=== PATIENT | male | born 1975 | race American Indian/Alaskan Native ===

== ENCOUNTER 2021-07-08 12:11 | Inpatient (IN) | payer SELFPAY ==
[2021-07-08] MEDS: SODIUM CHLORIDE 0.9% 1000 ML 2,000 ML IV ONE ×3 (13:00→14:24)
--- NOTE | 2021-07-08 13:25 | XRay Report ---
XR chest 1V ap INDICATION / CLINICAL INFORMATION: Chest Pain. COMPARISON: None available. FINDINGS: SUPPORT DEVICES: None. HEART /PULMONARY VASCULATURE: No significant abnormality. LUNGS / PLEURA: No significant pulmonary or pleural abnormality. No pneumothorax. ADDITIONAL FINDINGS: No significant additional findings. IMPRESSION: 1. No acute findings. Signer Name: Ha Mcnally MD Signed: 07/08/2021 1:20 PM Workstation Name: [id number]
[2021-07-08 13:34] LABS: Hematocrit 47.6 % (35.5-45.6); Hemoglobin 14.5 gm/dl (11.8-15.2); Mean Corpuscular HGB Conc 31 % (32-34); Mean Corpuscular Volume 108 fl (84-94); Platelet Count 252 K/mm3 (140-440); Red Blood Count 4.42 M/mm3 (3.65-5.03); Red Cell Distribution Width 12.6 % (13.2-15.2)
[2021-07-08 13:43] LABS: INR 1.17 (0.87-1.13)
[2021-07-08 14:06] LABS: Basophils % (Manual) 0 % (0.0-1.8); Eosinophils % (Manual) 0 % (0.0-4.3); Platelet Estimate Consistent w Auto; RBC Morphology Normal; Total Cells Counted 100
[2021-07-08 14:15] LABS: Alanine Aminotransferase 21 units/L (7-56); Albumin 4.2 g/dL (3.9-5); BUN/Creatinine Ratio 28; Blood Urea Nitrogen 94 mg/dL (9-20); Calcium 9.9 mg/dL (8.4-10.2); Hemolysis Index 3
[2021-07-08] MEDS ORDERED: INSULIN REGULAR, HUMAN 100 UNITS/1 ML IV ONE (15:23)
[2021-07-08 15:32] LABS: Basophils # (Auto) 0.2 K/mm3 (0.0-0.1); Monocytes # (Auto) 0.7 K/mm3 (0.0-0.8); Monocytes % (Auto) 4.7 % (0.0-7.3)
[2021-07-08 15:36] LABS: ABG Base Excess -28.7 mmol/L (-2.0-3.0); ABG HCO3 2.5 mmol/L (20.0-26.0); ABG Methemoglobin 0.8 % (0.0-1.5); ABG Oxygen Saturation 98.1 % (95.0-99.0); ABG PCO2 12.7 mm Hg; ABG PO2 157.4 mm Hg (80.0-90.0)
[2021-07-08 15:38] LABS: ABG PH 6.914 pH Units (7.350-7.450)
[2021-07-08] MEDS ORDERED: INSULIN REGULAR, HUMAN 100 UNITS in SODIUM CHLORIDE 0.9% 99 ML IV SCH (16:00)
[2021-07-08 16:11] LABS: Calcium 7.6 mg/dL (8.4-10.2)
[2021-07-08] MEDS ORDERED: ALBUTEROL 2.5 MG/3 ML NEBU IH PRN (16:15)
[2021-07-08] MEDS ORDERED: ACETAMINOPHEN 325 MG TAB PO PRN ×2 (16:15→16:25)
[2021-07-08] MEDS ORDERED: HYDROmorphone 1 MG/1 ML INJ IV PRN ×2 (16:15→16:25)
[2021-07-08] MEDS ORDERED: oxyCODONE /ACETAMINOPHEN 5-325MG TAB PO PRN (16:15)
--- NOTE | 2021-07-08 16:18 | History and Physical Report ---
History of Present Illness Chief complaint: I have been feeling sick History of present illness: 45 YO Male with DM, Obesity, Nicotine Dependence presents to ED for evaluation. Patient reports "I have been feeling sick". Patient states that he has experienced nausea, and has not taken his insulin over the past 5 days. Patient denies any decreased oral intake. Patient also acknowledges progressive weakness. EMS was notified 3 days ago but patient refused transport to the hospital for evaluation. Patient transported to [facility] via private vehicle for further care and evaluation of the aforementioned symptoms. The patient was seen and evaluated in the emergency department. All lab and imaging studies reviewed. Upon arrival the patient was found to be hypotensive with a systolic blood pressure in the 80s as well as clinical findings and lab findings consistent with sepsis. Patient also found to have DKA, acute kidney injury, volume depletion, acute pancreatitis, as well as hyperkalemia. The patient was admitted to the ICU and initiated on sepsis protocol, DKA protocol. Patient treated with IV antibiotic therapy and IV fluid resuscitation therapy with mild improvement in symptoms. Patient denies fever, chills, chest pain, palpitation, productive cough, skin rash, recent ill contacts, or known exposure to COVID-19. No prior admission for review. All medication listed at time of admission has been reconciled. Advanced care planning conducted in ED. Past History Past Medical History: diabetes, other (See HPI) Past Surgical History: No surgical history, Other (Reviewed) Social history: , smoking Family history: diabetes, hypertension Medications and Allergies Allergies Allergy/AdvReac Type Severity Reaction Status Date / Time No Known Allergies Allergy Unverified 04/13/15 04:55 Home Medications Medication Instructions Recorded Confirmed Last Taken Type Insulin Aspart (Nf) [NovoLOG 5 units SQ AC 04/13/15 04/13/15 04/12/15 History Flexpen] Insulin Detemir (Nf) [Levemir 10 units SQ QHS 04/13/15 04/13/15 04/12/15 History Flextouch] Lisinopril [Zestril TAB] 2.5 mg PO QDAY 04/13/15 04/13/15 04/12/15 History Active Meds: Active Medications Acetaminophen (Acetaminophen 325 Mg Tab) 650 mg PO Q6H PRN PRN Reason: Pain MILD(1-3)/Fever >100.5/RYAN Albuterol (Albuterol 2.5 Mg/3 Ml Nebu) 2.5 mg IH Q3HRT PRN PRN Reason: Shortness Of Breath Hydromorphone HCl (Hydromorphone 1 Mg/1 Ml Inj) 0.5 mg IV Q23H PRN PRN Reason: Pain , Severe (7-10) Insulin Human Regular 100 (units/ Sodium Chloride) 100 mls @ 1 mls/hr IV TITR JERAD; Protocol Last Admin: 07/08/21 15:58 Dose: 8 units/hr, 8 mls/hr Sodium Chloride (Nacl 0.9% 1000 Ml) 1,000 mls @ 150 mls/hr IV DIRECT JERAD Oxycodone/Acetaminophen (Oxycodone /Acetaminophen 5-325mg Tab) 1 tab PO Q16H PRN PRN Reason: Pain, Moderate (4-6) Sodium Chloride (Sodium Chloride 0.9% 10 Ml Flush Syringe) 10 ml IV BID JERAD Sodium Chloride (Sodium Chloride 0.9% 10 Ml Flush Syringe) 10 ml IV PRN PRN PRN Reason: LINE FLUSH Review of Systems Constitutional: weakness, no weight loss, no weight gain, no fever Ears, nose, mouth and throat: no ear pain, no tinnitis, no decreased hearing, no nasal congestion Cardiovascular: no chest pain, no palpitations, no edema, no shortness of breath Respiratory: no cough, no cough with sputum, no hemoptysis, no shortness of breath Gastrointestinal: nausea, vomiting, no diarrhea, no change in bowel habits Genitourinary Male: no hematuria, no flank pain, no discharge, no urinary timo quency, no urinary hesitancy Rectal: no pain, no incontinence, no bleeding Musculoskeletal: no neck stiffness, no neck pain, no low back pain, no leg numbness/tingling Integumentary: no rash, no pruritis, no sores, no boils Neurological: no head injury, no paralysis, no seizures, no tremors Psychiatric: no anxiety, no memory loss, no insomnia, no change in libido, no disorientation Endocrine: polyphagia, excessive thirst, polydipsia, no nocturia, no excessive sweating Hematologic/Lymphatic: no easy bruising, no easy bleeding Allergic/Immunologic: no urticaria, no wheezing Exam - Constitutional Vitals: Temp Pulse Resp BP Pulse Ox 78 19 146/56 100 07/08/21 16:00 07/08/21 16:00 07/08/21 16:00 07/08/21 16:00 General appearance: Present: mild distress - EENT Eyes: Present: PERRL ENT: hearing intact, clear oral mucosa, other (Oral mucosa dry) - Neck Neck: Present: supple, normal ROM - Respiratory Respiratory effort: normal Respiratory: bilateral: CTA - Cardiovascular Heart Sounds: Present: S1 & S2. Absent: rub, click - Extremities Extremities: pulses symmetrical, No edema Peripheral Pulses: within normal limits - Abdominal General gastrointestinal: Present: soft, non-tender, non-distended, normal bowel sounds Male genitourinary: Present: normal - Integumentary Integumentary: Present: clear, warm, dry - Musculoskeletal Musculoskeletal: gait normal, strength equal bilaterally - Psychiatric Psychiatric: appropriate mood/affect, intact judgment & insight - Neurologic Neurologic: CNII-XII intact, moves all extremities HEART Score - HEART Score Troponin: Troponin T < 0.010 ng/mL (0.00-0.029) 07/08/21 13:27 Results - Labs CBC & Chem 7: 07/08/21 13:27 07/08/21 17:17 Labs: Abnormal lab results 07/08/21 07/08/21 07/08/21 Range/Units 12:17 13:25 13:27 WBC 15.3 H (4.5-11.0) K/mm3 Hct 47.6 H (35.5-45.6) % MCV 108 H (84-94) fl MCH 33 H (28-32) pg MCHC 31 L (32-34) % RDW 12.6 L (13.2-15.2) % Baso # (Auto) 0.2 H (0.0-0.1) K/mm3 Seg Neuts % (Manual) 92.0 H (40.0-70.0) % Lymphocytes % (Manual) 4.0 L (13.4-35.0) % Seg Neutrophils # 14.5 H (1.8-7.7) K/mm3 Seg Neutrophils # Man 14.1 H (1.8-7.7) K/mm3 Lymphocytes # (Manual) 0.6 L (1.2-5.4) K/mm3 PT (12.2-14.9) Sec. INR (0.87-1.13) ABG pH (7.350-7.450) pH Units ABG pO2 (80.0-90.0) mm Hg ABG HCO3 (20.0-26.0) mmol/L ABG Base Excess (-2.0-3.0) mmol/L ABG Hemoglobin (14.0-18.0) gm/dl Sodium (137-145) mmol/L Potassium (3.6-5.0) mmol/L Chloride (98-107) mmol/L Carbon Dioxide (22-30) mmol/L BUN (9-20) mg/dL Creatinine (0.8-1.3) mg/dL Glucose (75-100) mg/dL POC Glucose > 600 H > 600 H (70-105) mg/dL Calcium (8.4-10.2) mg/dL Phosphorus (2.5-4.5) mg/dL Magnesium (1.7-2.3) mg/dL Lipase (13-60) units/L 07/08/21 07/08/21 07/08/21 Range/Units 13:27 13:27 15:15 WBC (4.5-11.0) K/mm3 Hct (35.5-45.6) % MCV (84-94) fl MCH (28-32) pg MCHC (32-34) % RDW (13.2-15.2) % Baso # (Auto) (0.0-0.1) K/mm3 Seg Neuts % (Manual) (40.0-70.0) % Lymphocytes % (Manual) (13.4-35.0) % Seg Neutrophils # (1.8-7.7) K/mm3 Seg Neutrophils # Man (1.8-7.7) K/mm3 Lymphocytes # (Manual) (1.2-5.4) K/mm3 PT 16.1 H (12.2-14.9) Sec. INR 1.17 H (0.87-1.13) ABG pH 6.914 L* (7.350-7.450) pH Units ABG pO2 157.4 H (80.0-90.0) mm Hg ABG HCO3 2.5 L (20.0-26.0) mmol/L ABG Base Excess -28.7 L (-2.0-3.0) mmol/L ABG Hemoglobin 12.8 L (14.0-18.0) gm/dl Sodium 118 L* (137-145) mmol/L Potassium 7.2 H* (3.6-5.0) mmol/L Chloride 68.3 L (98-107) mmol/L Carbon Dioxide < 2.0 L* (22-30) mmol/L BUN 94 H (9-20) mg/dL Creatinine 3.4 H (0.8-1.3) mg/dL Glucose 1087 H* (75-100) mg/dL POC Glucose (70-105) mg/dL Calcium (8.4-10.2) mg/dL Phosphorus (2.5-4.5) mg/dL Magnesium (1.7-2.3) mg/dL Lipase 356 H (13-60) units/L 07/08/21 Range/Units 15:39 WBC (4.5-11.0) K/mm3 Hct (35.5-45.6) % MCV (84-94) fl MCH (28-32) pg MCHC (32-34) % RDW (13.2-15.2) % Baso # (Auto) (0.0-0.1) K/mm3 Seg Neuts % (Manual) (40.0-70.0) % Lymphocytes % (Manual) (13.4-35.0) % Seg Neutrophils # (1.8-7.7) K/mm3 Seg Neutrophils # Man (1.8-7.7) K/mm3 Lymphocytes # (Manual) (1.2-5.4) K/mm3 PT (12.2-14.9) Sec. INR (0.87-1.13) ABG pH (7.350-7.450) pH Units ABG pO2 (80.0-90.0) mm Hg ABG HCO3 (20.0-26.0) mmol/L ABG Base Excess (-2.0-3.0) mmol/L ABG Hemoglobin (14.0-18.0) gm/dl Sodium (137-145) mmol/L Potassium (3.6-5.0) mmol/L Chloride (98-107) mmol/L Carbon Dioxide (22-30) mmol/L BUN 93 H (9-20) mg/dL Creatinine 3.3 H (0.8-1.3) mg/dL Glucose (75-100) mg/dL POC Glucose (70-105) mg/dL Calcium 7.6 L D (8.4-10.2) mg/dL Phosphorus 13.60 H (2.5-4.5) mg/dL Magnesium 3.20 H (1.7-2.3) mg/dL Lipase (13-60) units/L Assessment and Plan - Patient Problems (1) Sepsis Current Visit: Yes Status: Acute Plan to address problem: Sepsis protocol: CBC, CMP, IV antibiotic therapy, IV fluid resuscitation therapy, monitor urine output every shift, monitor fluid balance, maintain mean arterial pressure greater than equal to 65, serial lactic acid level, blood culture. The high probability of a clinically significant, sudden or life threatening deterioration of the [endocrine, GI, renal] system(s) required my full and direct attention, intervention and personal management. The aggregate critical care time was [90] minutes. This time is in addition to time spent performing r eported procedures but includes the following: [x] Data Review and interpretation [x] Patient assessment and monitoring of vital signs [x] Documentation [x] Medication orders and management (2) DKA (diabetic ketoacidosis) Current Visit: Yes Status: Acute Qualifiers: Diabetes mellitus type: type 1 Diabetes mellitus complication detail: without coma Qualified Code(s): E10.10 - Type 1 diabetes mellitus with ketoacidosis without coma Plan to address problem: DKA protocol: IV fluid cessation therapy, serial lactic acid level, serial BMP, monitor anion gap, insulin drip, monitor fluid balance. Potassium repletion as per protocol. (3) Obesity hypoventilation syndrome Current Visit: Yes Status: Acute Plan to address problem: Balanced diet, increase physical activity at discharge. (4) Nicotine dependence Current Visit: Yes Status: Acute Qualifiers: Nicotine product type: cigarettes Substance use status: in withdrawal Qualified Code(s): F17.213 - Nicotine dependence, cigarettes, with withdrawal Plan to address problem: Smoking cessation counseling, supportive care, behavior change counseling, +15 minutes. (5) Pancreatitis Current Visit: Yes Status: Acute Qualifiers: Acute pancreatitis complication: unspecified Plan to address problem: IV fluid resuscitation therapy, bowel rest, supportive care, repeat lipase in a.m. Serial abdominal exam. (6) DVT prophylaxis Current Visit: Yes Status: Acute Plan to address problem: SCDs bilateral lower extremities while in bed, (7) Advance care planning Current Visit: Yes Status: Acute Plan to address problem: Disease education conducted, care plan discussed, diagnosis discussed, prognosis discussed, patient is full code. Patient acknowledges understanding and agreement with care plan, +30 minutes.
[2021-07-08] MEDS ORDERED: SODIUM BICARB 8.4% 50 MEQ/50 ML SYRINGE IV ONE (16:19)
[2021-07-08] MEDS ORDERED: VANCOMYCIN/NS 1 GM/250 ML 1 GM/250 ML BAG IV ONE (16:19)
--- NOTE | 2021-07-08 16:19 | Emergency Department Report ---
ED General Adult HPI - General Chief complaint: Hyperglycemia Stated complaint: BS HIGH (500 MG/DL), NO FOOD FOR FIVE DAYS Time Seen by Provider: 07/08/21 12:44 Source: patient, family Mode of arrival: Wheelchair Limitations: No Limitations - History of Present Illness Initial comments: NAUSEA AND VOMITNG HIGH BLOOD SUGAR DIABETIC NON COMPLIANT -: Gradual, days(s) Severity scale (0 -10): 0 - Related Data Home Medications Medication Instructions Recorded Confirmed Last Taken Insulin Aspart (Nf) [NovoLOG 5 units SQ AC 04/13/15 04/13/15 04/12/15 Flexpen] Insulin Detemir (Nf) [Levemir 10 units SQ QHS 04/13/15 04/13/15 04/12/15 Flextouch] Lisinopril [Zestril TAB] 2.5 mg PO QDAY 04/13/15 04/13/15 04/12/15 Allergies Allergy/AdvReac Type Severity Reaction Status Date / Time No Known Allergies Allergy Unverified 04/13/15 04:55 ED Review of Systems ROS: Stated complaint: BS HIGH (500 MG/DL), NO FOOD FOR FIVE DAYS Other details as noted in HPI Constitutional: denies: chills, fever Eyes: denies: eye pain, eye discharge, vision change ENT: denies: ear pain, throat pain Respiratory: denies: cough, shortness of breath, wheezing Cardiovascular: denies: chest pain, palpitations Endocrine: no symptoms reported Gastrointestinal: denies: abdominal pain, nausea, diarrhea Genitourinary: denies: urgency, dysuria Musculoskeletal: denies: back pain, joint swelling, arthralgia Skin: denies: rash, lesions Neurological: denies: headache, weakness, paresthesias Psychiatric: denies: anxiety, depression Hematological/Lymphatic: denies: easy bleeding, easy bruising ED Past Medical Hx - Past Medical History Previous Medical History?: Yes Hx Diabetes: Yes - Surgical History Past Surgical History?: No - Social History Smoking Status: Current Every Day Smoker Substance Use Type: Alcohol, Marijuana, Prescribed - Medications Home Medications: Home Medications Medication Instructions Recorded Confirmed Last Taken Type Insulin Aspart (Nf) [NovoLOG 5 units SQ AC 04/13/15 04/13/15 04/12/15 History Flexpen] Insulin Detemir (Nf) [Levemir 10 units SQ QHS 04/13/15 04/13/15 04/12/15 History Flextouch] Lisinopril [Zestril TAB] 2.5 mg PO QDAY 04/13/15 04/13/15 04/12/15 History ED Physical Exam - General Limitations: No Limitations General appearance: in distress, other - Head Head exam: Present: atraumatic, normocephalic - Eye Eye exam: Present: normal appearance - ENT ENT exam: Present: mucous membranes moist - Neck Neck exam: Present: normal inspection - Respiratory Respiratory exam: Present: normal lung sounds bilaterally. Absent: respiratory distress - Cardiovascular Cardiovascular Exam: Present: regular rate, normal rhythm. Absent: systolic murmur, diastolic murmur, rubs, gallop - GI/Abdominal GI/Abdominal exam: Present: soft, normal bowel sounds - Rectal Rectal exam: Present: deferred - Extremities Exam Extremities exam: Present: normal inspection - Back Exam Back exam: Present: normal inspection - Neurological Exam Neurological exam: Present: alert, oriented X3 - Psychiatric Psychiatric exam: Present: normal affect, normal mood - Skin Skin exam: Present: warm, dry, intact, normal color. Absent: rash ED Course Vital Signs 07/08/21 07/08/21 07/08/21 12:29 12:44 12:47 Pulse Rate 68 55 L 58 L Respiratory 39 H 24 Rate Blood Pressure 88/55 Blood Pressure 88/45 [Right] O2 Sat by Pulse 100 94 Oximetry 07/08/21 07/08/21 07/08/21 13:33 13:35 14:00 Pulse Rate 100 H 99 H 86 Respiratory 39 H 32 H Rate Blood Pressure Blood Pressure 108/46 103/43 [Right] O2 Sat by Pulse 100 95 Oximetry 07/08/21 07/08/21 07/08/21 14:14 15:25 16:00 Pulse Rate 87 77 78 Respiratory 20 19 Rate Blood Pressure Blood Pressure 154/68 146/56 [Right] O2 Sat by Pulse 100 100 Oximetry - Reevaluation(s) Reevaluation #1: 07/08/21 16:17 FLUIDS GIVEN , INSULIN BOLUS AND DRIP AND BICARB DRIP ED Medical Decision Making - Lab Data Result diagrams: 07/08/21 13:27 07/08/21 15:39 Critical Care Time: Yes Critical care time in (mins) excluding proc time.: 65 Critical care attestation.: If time is entered above; I have spent that time in minutes in the direct care of this critically ill patient, excluding procedure time. Critical Care Time: 65 ED Disposition Clinical Impression: DKA (diabetic ketoacidosis), Hyperglycemia, Acidosis, Hyperkalemia, Pancreatitis Disposition: 09 ADMITTED INPATIENT Is pt being admited?: Yes Does the pt Need Aspirin: No Condition: Critical Instructions: Diabetic Ketoacidosis (ED) Referrals: PRIMARY CARE, [Primary Care Provider] - 3-5 Days
[2021-07-08] MEDS ORDERED: SODIUM CHLORIDE 0.9% 1000 ML IV SOLN IV ONE (16:25)
[2021-07-08] MEDS ORDERED: CALCIUM GLUCONATE 1,000 MG in SODIUM CHLORIDE 0.9% 100 ML IV ONE (16:28)
[2021-07-08 17:40] LABS: Bilirubin,Urine NEG (Negative); Blood,Urine LG (Negative); Color,Urine Yellow (Yellow); Hyaline Casts,Urine 11 /LPF; Mucus,Urine FEW /HPF; Urobilinogen,Urine < 2.0 mg/dL (<2.0)
[2021-07-08 17:51] LABS: Amphetamine Screen,Urine PRESUMPTIVE NEGATIVE; Benzodiazepines Screen,Urine PRESUMPTIVE NEGATIVE; Cannabinoid Screen,Urine PRESUMPTIVE NEGATIVE; Cocaine Screen,Urine PRESUMPTIVE NEGATIVE; Methadone Screen,Urine PRESUMPTIVE NEGATIVE; Opiate Screen,Urine PRESUMPTIVE NEGATIVE
[2021-07-08 17:52] LABS: Calcium 8.7 mg/dL (8.4-10.2)
[2021-07-08] MEDS: SODIUM CHLORIDE 0.9% 1000 ML 1,000 ML IV SCH (19:00)
[2021-07-08 20:59] LABS: Calcium 8.2 mg/dL (8.4-10.2)
[2021-07-09 00:25] LABS: Calcium 8.4 mg/dL (8.4-10.2)
[2021-07-09 05:09] LABS: Hemoglobin 14.6 gm/dl (11.8-15.2); Mean Corpuscular HGB Conc 35 % (32-34); Mean Corpuscular Volume 93 fl (84-94); Platelet Count 209 K/mm3 (140-440); Red Cell Distribution Width 11.7 % (13.2-15.2)
[2021-07-09 05:35] LABS: Albumin 4.1 g/dL (3.9-5); Calcium 9.1 mg/dL (8.4-10.2)
[2021-07-09] MEDS ORDERED: D5W/0.45% NACL/KCL 20 MEQ 20 MEQ/1,000 ML BAG IV SCH (06:00)
[2021-07-09 06:22] LABS: Anisocytosis 1+; Basophils % (Manual) 0 % (0.0-1.8); Eosinophils % (Manual) 0 % (0.0-4.3); Total Cells Counted 100
[2021-07-09 06:23] LABS: Platelet Estimate Consistent w Auto
[2021-07-09] MEDS ORDERED: DEXTROSE 50% IN WATER (25GM) 50 ML SYRINGE IV PRN (08:30)
--- NOTE | 2021-07-09 08:35 | Progress Note ---
Assessment and Plan Assessment and plan: History of present illness: 45 YO Male with DM, Obesity, Nicotine Dependence presents to ED for evaluation. Patient reports "I have been feeling sick". Patient states that he has experienced nausea, and has not taken his insulin over the past 5 days. Patient denies any decreased oral intake. Patient also acknowledges progressive weakness. EMS was notified 3 days ago but patient refused transport to the hospital for evaluation. Patient transported to [facility] via private vehicle for further care and evaluation of the aforementioned symptoms. The patient was seen and evaluated in the emergency department. All lab and imaging studies reviewed. Upon arrival the patient was found to be hypotensive with a systolic blood pressure in the 80s as well as clinical findings and lab findings consistent with sepsis. Patient also found to have DKA, acute kidney injury, volume depletion, acute pancreatitis, as well as hyperkalemia. The patient was admitted to the ICU and initiated on sepsis protocol, DKA protocol. Patient treated with IV antibiotic therapy and IV fluid resuscitation therapy with mild improvement in symptoms. Patient denies fever, chills, chest pain, palpitation, productive cough, skin rash, recent ill contacts, or known exposure to COVID-19. No prior admission for review. All medication listed at time of admission has been reconciled. Advanced care planning conducted in ED. Hospital course: 07/09: IVF management for dka and pancreatitis. GAP closed now. initiated basal bolus insulin with SSI. Can downgrade to tele bed. Possible d/c in next 24-48 hrs. Assessment and Plan #Severe sepsis POA -WBC 15.7 on admission, lactic acid 3.2, unclear source UA does not demonstrate elevated WBC, admission chest x-ray normal study -Blood culture, urine culture -Procalcitonin ordered, discontinue antibiotics if normal Currently on levaquin IV #Diabetic ketoacidosis -DKA protocol: IV fluid cessation therapy, serial lactic acid level, serial BMP, monitor anion gap, insulin drip, monitor fluid balance. Potassium repletion as per protocol. - AG on admission 48, bicarb <2, sodium 118, K 7.2 - repeat labs : Na: 136, K: 5, Bicarb 21, GAP now closed. - serial bmp -CCM consult on admission #Acute kidney injury due to vasomotor nephropathy - Cr: 3.4 --> 1.7, likely dehydration - d/c lisinopril for now. hold until cleared to resume - IVF - nephro was consulted on admission. #Hypertension - d/c lisinopril due to renal insufficiency - start norvasc #Hyperkalemia - correction of dka as above. #Hyponatremia -correction of dka as above #Pancreatitis - IVF as above #Metabolic acidosis - bicarb < 2 on admission, likely d/t DKA - bicarb admin in ED. - improved. #Type 1 diabetes with hyperglycemia - hemoglobin a1c ordered #Obesity hypoventilation syndrome - balanced diet, inc physical activity at d//c #Nicotine dependence - Behavioral counseling administered + 15 min #Advance care planning Disease education conducted, care plan discussed, diagnoses discussed, prognosis discussed, patient is full code, patient acknowledges understanding and agree with care plan, +30 minutes. The high probability of a clinically significant, sudden or life threatening deterioration of the [pulmonary, neuro] system(s) required my full and direct attention, intervention and personal management. The aggregate critical care time was [60] minutes. This time is in addition to time spent performing reported procedures but includes the following: [x] Data Review and interpretation [x] Patient assessment and monitoring of vital signs [x] Documentation [x] Medication orders and management Hospitalist Physical - Physical exam Narrative exam: Physical Exam: VITAL SIGNS: Reviewed. GENERAL: The patient appears normally developed, Vital signs as documented. HEAD: No signs of head trauma. EYES: Pupils are equal. Extraocular motions intact. EARS: Hearing grossly intact. MOUTH: Oropharynx is normal. NECK: No adenopathy, no JVD. CHEST: Chest with clear breath sounds bilaterally. No wheezes, rales, or rhonchi. CARDIAC: Regular rate and rhythm. S1 and S2, without murmurs, gallops, or rubs. VASCULAR: No Edema. Peripheral pulses normal and equal in all extremities. ABDOMEN: Soft, non tender and non distended. No rebound or guarding, and no masses palpated. Bowel Sounds normal. MUSCULOSKELETAL: Good range of motion of all major joints. Extremities without clubbing, cyanosis or edema. NEUROLOGIC EXAM: Alert and oriented x 4. no focal sensory or strength deficits. PSYCHIATRIC: Mood normal. SKIN: detail exam as documented in skin assessment - Constitutional Vitals: Temp Pulse Resp BP Pulse Ox 92 H 12 111/57 100 07/09/21 07:15 07/09/21 07:15 07/09/21 07:15 07/09/21 07:15 General appearance: Present: mild distress HEART Score - HEART Score Troponin: Troponin T < 0.010 ng/mL (0.00-0.029) 07/08/21 13:27 Results - Labs CBC & Chem 7: 07/09/21 04:40 07/09/21 07:38 Labs: Laboratory Last Values WBC 15.7 K/mm3 (4.5-11.0) H 07/09/21 04:40 RBC 4.50 M/mm3 (3.65-5.03) 07/09/21 04:40 Hgb 14.6 gm/dl (11.8-15.2) 07/09/21 04:40 Hct 42.0 % (35.5-45.6) 07/09/21 04:40 MCV 93 fl (84-94) 07/09/21 04:40 MCH 33 pg (28-32) H 07/09/21 04:40 MCHC 35 % (32-34) H 07/09/21 04:40 RDW 11.7 % (13.2-15.2) L 07/09/21 04:40 Plt Count 209 K/mm3 (140-440) 07/09/21 04:40 [place] % (Auto) 4.7 % (0.0-7.3) 07/08/21 13:27 Eos % (Auto) 0.0 % (0.0-4.3) 07/08/21 13:27 [place] # (Auto) 0.7 K/mm3 (0.0-0.8) 07/08/21 13:27 Eos # (Auto) 0.0 K/mm3 (0.0-0.4) 07/08/21 13:27 Baso # (Auto) 0.2 K/mm3 (0.0-0.1) H 07/08/21 13:27 Add Manual Diff Complete 07/09/21 04:40 Total Counted 100 07/09/21 04:40 Seg Neutrophils % Etymology Teacher 07/09/21 04:40 Seg Neuts % (Manual) 91.0 % (40.0-70.0) H 07/09/21 04:40 Band Neutrophils % 0 % 07/09/21 04:40 Lymphocytes % (Manual) 6.0 % (13.4-35.0) L 07/09/21 04:40 Reactive Lymphs % (Man) 0 % 07/09/21 04:40 Monocytes % (Manual) 3.0 % (0.0-7.3) 07/09/21 04:40 Eosinophils % (Manual) 0 % (0.0-4.3) 07/09/21 04:40 Basophils % (Manual) 0 % (0.0-1.8) 07/09/21 04:40 Metamyelocytes % 0 % 07/09/21 04:40 Myelocytes % 0 % 07/09/21 04:40 Promyelocytes % 0 % 07/09/21 04:40 Blast Cells % 0 % 07/09/21 04:40 Nucleated RBC % Not Reportable 07/09/21 04:40 Seg Neutrophils # 14.5 K/mm3 (1.8-7.7) H 07/08/21 13:27 Seg Neutrophils # Man 14.3 K/mm3 (1.8-7.7) H 07/09/21 04:40 Band Neutrophils # 0.0 K/mm3 07/09/21 04:40 Lymphocytes # (Manual) 0.9 K/mm3 (1.2-5.4) L 07/09/21 04:40 Abs React Lymphs (Man) 0.0 K/mm3 07/09/21 04:40 Monocytes # (Manual) 0.5 K/mm3 (0.0-0.8) 07/09/21 04:40 Eosinophils # (Manual) 0.0 K/mm3 (0.0-0.4) 07/09/21 04:40 Basophils # (Manual) 0.0 K/mm3 (0.0-0.1) 07/09/21 04:40 Metamyelocytes # 0.0 K/mm3 07/09/21 04:40 Myelocytes # 0.0 K/mm3 07/09/21 04:40 Promyelocytes # 0.0 K/mm3 07/09/21 04:40 Blast Cells # 0.0 K/mm3 07/09/21 04:40 WBC Morphology Not Reportable 07/09/21 04:40 Hypersegmented Neuts Not Reportable 07/09/21 04:40 Hyposegmented Neuts Not Reportable 07/09/21 04:40 Hypogranular Neuts Not Reportable 07/09/21 04:40 Smudge Cells Not Reportable 07/09/21 04:40 Toxic Granulation Not Reportable 07/09/21 04:40 Toxic Vacuolation Not Reportable 07/09/21 04:40 Dohle Bodies Not Reportable 07/09/21 04:40 Pelger-Huet Anomaly Not Reportable 07/09/21 04:40 Zoila Rods Not Reportable 07/09/21 04:40 Platelet Estimate Consistent w auto 07/09/21 04:40 Clumped Platelets Not Reportable 07/09/21 04:40 Plt Clumps, EDTA Not Reportable 07/09/21 04:40 Large Platelets Not Reportable 07/09/21 04:40 Giant Platelets Not Reportable 07/09/21 04:40 Platelet Satelliting Not Reportable 07/09/21 04:40 Plt Morphology Comment Not Reportable 07/09/21 04:40 RBC Morphology Not Reportable 07/09/21 04:40 Dimorphic RBCs Not Reportable 07/09/21 04:40 Polychromasia Not Reportable 07/09/21 04:40 Hypochromasia Not Reportable 07/09/21 04:40 Poikilocytosis Not Reportable 07/09/21 04:40 Anisocytosis 1+ 07/09/21 04:40 Microcytosis Not Reportable 07/09/21 04:40 Macrocytosis Not Reportable 07/09/21 04:40 Spherocytes Not Reportable 07/09/21 04:40 Pappenheimer Bodies Not Reportable 07/09/21 04:40 Sickle Cells Not Reportable 07/09/21 04:40 Target Cells Not Reportable 07/09/21 04:40 Tear Drop Cells Not Reportable 07/09/21 04:40 Ovalocytes Not Reportable 07/09/21 04:40 Helmet Cells Not Reportable 07/09/21 04:40 [place] Bodies Not Reportable 07/09/21 04:40 [place] Rings Not Reportable 07/09/21 04:40 [place] Cells Not Reportable 07/09/21 04:40 Bite Cells Not Reportable 07/09/21 04:40 Crenated Cell Not Reportable 07/09/21 04:40 Elliptocytes Not Reportable 07/09/21 04:40 Acanthocytes (Spur) Not Reportable 07/09/21 04:40 Rouleaux Not Reportable 07/09/21 04:40 Hemoglobin C Crystals Not Reportable 07/09/21 04:40 Schistocytes Not Reportable 07/09/21 04:40 Malaria parasites Not Reportable 07/09/21 04:40 Bob Bodies Not Reportable 07/09/21 04:40 Hem Pathologist Commnt No 07/09/21 04:40 PT 16.1 Sec. (12.2-14.9) H 07/08/21 13:27 INR 1.17 (0.87-1.13) H 07/08/21 13:27 ABG pH 6.914 pH Units (7.350-7.450) L* 07/08/21 15:15 ABG pCO2 12.7 mm Hg 07/08/21 15:15 ABG pO2 157.4 mm Hg (80.0-90.0) H 07/08/21 15:15 ABG HCO3 2.5 mmol/L (20.0-26.0) L 07/08/21 15:15 ABG O2 Saturation 98.1 % (95.0-99.0) 07/08/21 15:15 ABG O2 Content 17.6 (0.0-44) 07/08/21 15:15 ABG Base Excess -28.7 mmol/L (-2.0-3.0) L 07/08/21 15:15 ABG Hemoglobin 12.8 gm/dl (14.0-18.0) L 07/08/21 15:15 ABG Carboxyhemoglobin 1.2 % (0.0-5.0) 07/08/21 15:15 ABG Methemoglobin 0.8 % (0.0-1.5) 07/08/21 15:15 Oxyhemoglobin 96.2 % (95.0-99.0) 07/08/21 15:15 FiO2 21 % 07/08/21 15:15 Sodium 136 mmol/L (137-145) L 07/09/21 07:38 Potassium 5.0 mmol/L (3.6-5.0) 07/09/21 07:38 Chloride 103.3 mmol/L (98-107) 07/09/21 07:38 Carbon Dioxide 21 mmol/L (22-30) L 07/09/21 07:38 Anion Gap 17 mmol/L 07/09/21 07:38 BUN 67 mg/dL (9-20) H 07/09/21 07:38 Creatinine 1.7 mg/dL (0.8-1.3) H 07/09/21 07:38 Estimated GFR 53 ml/min 07/09/21 07:38 BUN/Creatinine Ratio 39 % 07/09/21 07:38 Glucose 171 mg/dL (75-100) H 07/09/21 07:38 POC Glucose 160 mg/dL (70-105) H 07/09/21 07:14 Ketones Quantitative Large (Negative) 07/08/21 13:27 Lactic Acid 1.60 mmol/L (0.7-2.0) 07/08/21 23:33 Calcium 9.0 mg/dL (8.4-10.2) 07/09/21 07:38 Phosphorus 13.60 mg/dL (2.5-4.5) H 07/08/21 15:39 Magnesium 3.20 mg/dL (1.7-2.3) H 07/08/21 15:39 Total Bilirubin 0.40 mg/dL (0.1-1.2) 07/09/21 04:40 AST 21 units/L (5-40) 07/09/21 04:40 ALT 20 units/L (7-56) 07/09/21 04:40 Alkaline Phosphatase 70 units/L (35-129) 07/09/21 04:40 Troponin T < 0.010 ng/mL (0.00-0.029) 07/08/21 13:27 Total Protein 6.5 g/dL (6.3-8.2) 07/09/21 04:40 Albumin 4.1 g/dL (3.9-5) 07/09/21 04:40 Albumin/Globulin Ratio 1.7 % 07/09/21 04:40 Lipase 154 units/L (13-60) H 07/09/21 04:40 Urine Color Yellow (Yellow) 07/08/21 Unknown Urine Turbidity Hazy (Clear) 07/08/21 Unknown Urine pH 5.0 (5.0-7.0) 07/08/21 Unknown Ur Specific [place] 1.015 (1.003-1.030) 07/08/21 Unknown Urine Protein 100 mg/dl mg/dL (Negative) 07/08/21 Unknown Urine Glucose (UA) >=500 mg/dL (Negative) 07/08/21 Unknown Urine Ketones 20 mg/dL (Negative) 07/08/21 Unknown Urine Blood Lg (Negative) 07/08/21 Unknown Urine Nitrite Neg (Negative) 07/08/21 Unknown Urine Bilirubin Neg (Negative) 07/08/21 Unknown Urine Urobilinogen < 2.0 mg/dL (<2.0) 07/08/21 Unknown Ur Leukocyte Esterase Neg (Negative) 07/08/21 Unknown Urine WBC (Auto) 4.0 /HPF (0.0-6.0) 07/08/21 Unknown Urine RBC (Auto) 1.0 /HPF (0.0-6.0) 07/08/21 Unknown U Epithel Cells (Auto) < 1.0 /HPF (0-13.0) 07/08/21 Unknown Hyaline Casts 11 /LPF 07/08/21 Unknown Urine Mucus Few /HPF 07/08/21 Unknown Urine Opiates Screen Presumptive negative 07/08/21 Unknown Urine Methadone Screen Presumptive negative 07/08/21 Unknown Ur Barbiturates Screen Presumptive negative 07/08/21 Unknown Ur Phencyclidine Scrn Presumptive negative 07/08/21 Unknown Ur Amphetamines Screen Presumptive negative 07/08/21 Unknown U Benzodiazepines Scrn Presumptive negative 07/08/21 Unknown Urine Cocaine Screen Presumptive negative 07/08/21 Unknown U Marijuana (THC) Screen Presumptive negative 07/08/21 Unknown Drugs of Abuse Note Disclamer 07/08/21 Unknown Microbiology: Microbiology 07/08/21 17:17 Peripheral/Venous Blood Culture - Preliminary Culture in Progress 07/08/21 17:17 Peripheral/Venous Blood Culture - Preliminary Culture in Progress Active Medications - Current Medications Current Medications: Generic Name Dose Route Start Last Admin Trade Name Freq PRN Reason Stop Dose Admin Acetaminophen 650 mg 07/08/21 16:15 Acetaminophen 325 Mg Tab PO Q6H PRN Pain MILD(1-3)/Fever >100.5/RYAN Acetaminophen 650 mg 07/08/21 16:25 Acetaminophen 325 Mg Tab PO Q6H PRN Pain, Mild (1-3) Albuterol 2.5 mg 07/08/21 16:15 Albuterol 2.5 Mg/3 Ml Nebu IH Q3HRT PRN Shortness Of Breath Hydromorphone HCl 0.5 mg 07/08/21 16:15 07/08/21 21:24 Hydromorphone 1 Mg/1 Ml Inj IV 0.5 mg Q23H PRN Administration Pain , Severe (7-10) Hydromorphone HCl 0.25 mg 07/08/21 16:25 Hydromorphone 1 Mg/1 Ml Inj IV Q4H PRN Pain, Moderate (4-6) Insulin Human Regular 100 100 mls @ 1 mls/hr 07/08/21 16:00 07/09/21 07:16 units/ Sodium Chloride IV 2 units/hr TITR JERAD 2 mls/hr Titration Protocol 1 UNITS/HR Sodium Chloride 1,000 mls @ 150 mls/hr 07/08/21 16:15 07/08/21 19:00 Nacl 0.9% 1000 Ml IV 150 mls/hr DIRECT JERAD Administration Levofloxacin/Dextrose 750 mg in 150 mls @ 100 mls/hr 07/08/21 17:00 07/08/21 17:45 Levaquin 750mg/150ml IV 100 mls/hr Q24H JERAD Administration Protocol Potassium Chloride/Dextrose/Sod Cl 20 meq in 1,000 mls @ 125 mls/hr 07/09/21 06:00 07/09/21 06:03 D5w/0.45% Nacl/Kcl 20 Meq IV 125 mls/hr DIRECT JERAD Administration Lisinopril 2.5 mg 07/09/21 10:00 Lisinopril 5 Mg Tab PO QDAY JERAD Oxycodone/Acetaminophen 1 tab 07/08/21 16:15 Oxycodone /Acetaminophen 5-325mg Tab PO Q16H PRN Pain, Moderate (4-6) Sodium Chloride 10 ml 07/08/21 22:00 07/08/21 22:21 Sodium Chloride 0.9% 10 Ml Flush Syringe IV 10 ml BID JERAD Administration Sodium Chloride 10 ml 07/08/21 16:15 Sodium Chloride 0.9% 10 Ml Flush Syringe IV PRN PRN LINE FLUSH
[2021-07-09] MEDS ORDERED: INSULIN LISPRO 100 UNIT/ML SUB-Q SCH (09:00)
[2021-07-09] MEDS ORDERED: INSULIN GLARGINE 100 UNITS/ML SUB-Q ONE (09:00)
[2021-07-09] MEDS ORDERED: LISINOPRIL 5 MG TAB PO SCH (10:00)
[2021-07-09] MEDS ORDERED: NON-FORMULARY EACH (Lisinopril [Zestril Tab] 2.5 MG Tablet) PO SCH (10:00)
[2021-07-09] MEDS: amLODIPine 5 MG TAB PO SCH (10:09)
--- NOTE | 2021-07-09 10:41 | Event Note ---
Date: 07/09/21 GAP closed. Should be stable for transfer to floor.
--- NOTE | 2021-07-09 11:22 | Consultation ---
History of Present Illness - Reason for Consult Consult date: 07/09/21 acute renal failure, hyperkalemia Requesting physician: HIMA LANDON - History of Present Illness This is a 44 yo M with past medical history of insulin dependent DM, obesity, who presents to ER with generalized fatigue, " feeling sick" along with nausea. Patient has not taken his insulin over the past 5 days. EMS was notified 3 days ago but patient refused transport to the hospital for evaluation. Patient transported to [facility] via private vehicle for further care and evaluation of the aforementioned symptoms. Labs in ER showed evidence of hyperglycemia with serum glucose > 900 and DKA with AG > 45, elevated lipase > 150, along with hyponatremia ( due to hyperglycemia), hyperkalemia, and increased BUN/Cr at 93/3.3mg/dl. patient was admitted for treatment of DKA, acute pancreatitis, JESSICA. Pt was treated with IV antibiotic therapy and IV fluid resuscitation therapy and IV insulin. Renal consult is requested for management of JESSICA/electrolyte imbalance Past History Past Medical History: diabetes, other (See HPI) Past Surgical History: No surgical history, Other (Reviewed) Social history: , smoking Family history: diabetes, hypertension Medications and Allergies Allergies Allergy/AdvReac Type Severity Reaction Status Date / Time No Known Allergies Allergy Unverified 04/13/15 04:55 Home Medications Medication Instructions Recorded Confirmed Last Taken Type Insulin Aspart (Nf) [NovoLOG 5 units SQ AC 04/13/15 04/13/15 04/12/15 History Flexpen] Insulin Detemir (Nf) [Levemir 10 units SQ QHS 04/13/15 04/13/15 04/12/15 History Flextouch] Lisinopril [Zestril TAB] 2.5 mg PO QDAY 04/13/15 04/13/15 04/12/15 History Active Meds: Active Medications Acetaminophen (Acetaminophen 325 Mg Tab) 650 mg PO Q6H PRN PRN Reason: Pain MILD(1-3)/Fever >100.5/RYAN Acetaminophen (Acetaminophen 325 Mg Tab) 650 mg PO Q6H PRN PRN Reason: Pain, Mild (1-3) Albuterol (Albuterol 2.5 Mg/3 Ml Nebu) 2.5 mg IH Q3HRT PRN PRN Reason: Shortness Of Breath Amlodipine Besylate (Amlodipine 5 Mg Tab) 5 mg PO QDAY JERAD Last Admin: 07/09/21 10:09 Dose: Not Given Dextrose (Dextrose 50% In Water (25gm) 50 Ml Syringe) 50 ml IV Q30MIN PRN; Protocol PRN Reason: Hypoglycemia Hydromorphone HCl (Hydromorphone 1 Mg/1 Ml Inj) 0.5 mg IV Q23H PRN PRN Reason: Pain , Severe (7-10) Last Admin: 07/08/21 21:24 Dose: 0.5 mg Hydromorphone HCl (Hydromorphone 1 Mg/1 Ml Inj) 0.25 mg IV Q4H PRN PRN Reason: Pain, Moderate (4-6) Insulin Human Regular 100 (units/ Sodium Chloride) 100 mls @ 1 mls/hr IV TITR JERAD; Protocol Last Titration: 07/09/21 07:16 Dose: 2 units/hr, 2 mls/hr Sodium Chloride (Nacl 0.9% 1000 Ml) 1,000 mls @ 150 mls/hr IV DIRECT JERAD Last Admin: 07/08/21 19:00 Dose: 150 mls/hr Levofloxacin/Dextrose (Levaquin 750mg/150ml) 750 mg in 150 mls @ 100 mls/hr IV Q24H JERAD; Protocol Last Infusion: 07/09/21 08:43 Dose: 150 mls/hr Potassium Chloride/Dextrose/Sod Cl (D5w/0.45% Nacl/Kcl 20 Meq) 20 meq in 1,000 mls @ 125 mls/hr IV DIRECT JERAD Last Admin: 07/09/21 06:03 Dose: 125 mls/hr Insulin Human Lispro (Insulin Lispro 100 Unit/Ml) 0 unit SUB-Q Q6HR JERAD; Protocol Insulin Human Regular (Insulin Regular, Human 100 Units/1 Ml) 5 units SUB-Q ACHS JERAD Oxycodone/Acetaminophen (Oxycodone /Acetaminophen 5-325mg Tab) 1 tab PO Q16H PRN PRN Reason: Pain, Moderate (4-6) Sodium Chloride (Sodium Chloride 0.9% 10 Ml Flush Syringe) 10 ml IV BID JERAD Last Admin: 07/09/21 10:07 Dose: 10 ml Sodium Chloride (Sodium Chloride 0.9% 10 Ml Flush Syringe) 10 ml IV PRN PRN PRN Reason: LINE FLUSH Review of Systems All systems: negative Constitutional: anorexia, fatigue, weakness, malaise Exam - Vital Signs Vital signs: Vital Signs Pulse Resp BP Pulse Ox 68 24 88/45 94 07/08/21 12:29 07/08/21 12:29 07/08/21 12:29 07/08/21 12:29 - General Appearance General appearance: well-developed, well-nourished, appears stated age EENT: ATNC, PERRL, mucous membranes moist Neck: Present: neck supple Respiratory: Clear to Ascultation Heart: regular, S1S2 Gastrointestinal: Present: normoactive bowel sounds Integumentary: no rash Neurologic: no focal deficit, alert and oriented x3, strength 5/5, CN 3-12 intact Psychiatric: mood/affect appropriate, cooperative Results - Lab Results 07/09/21 04:40 07/09/21 07:38 Most recent lab results ABG pH 6.914 pH Units (7.350-7.450) L* 07/08/21 15:15 ABG pCO2 12.7 mm Hg 07/08/21 15:15 ABG pO2 157.4 mm Hg (80.0-90.0) H 07/08/21 15:15 ABG HCO3 2.5 mmol/L (20.0-26.0) L 07/08/21 15:15 ABG O2 Saturation 98.1 % (95.0-99.0) 07/08/21 15:15 Calcium 9.0 mg/dL (8.4-10.2) 07/09/21 07:38 Phosphorus 13.60 mg/dL (2.5-4.5) H 07/08/21 15:39 Magnesium 3.20 mg/dL (1.7-2.3) H 07/08/21 15:39 Assessment and Plan - Patient Problems (1) Acute kidney injury Current Visit: Yes Status: Acute Plan to address problem: JESSICA is likely secondary to pre-renal azotemia in the setting of severe hyperglycemia/DKA. Renal function improving promptly on IVF, improved glucose control and resolving DKA. Cr improved to 1.7mg/dl, UOP increasing. Check urine lytes, urine P/C ratio. Cont IVF with D5 1/2 NS + Kcl at 125ml/hr. Strict I/Os, avoid nephrotoxins, NSAIDs IV, contrast. Will monitor lytes, renal parameters closely and make further recommendations. (2) Hyponatremia Current Visit: Yes Status: Acute Plan to address problem: 2/2 hyperglycemia, improving with aggressive glucose control (3) DKA (diabetic ketoacidosis) Current Visit: Yes Status: Acute Qualifiers: Diabetes mellitus type: type 1 Diabetes mellitus complication detail: without coma Qualified Code(s): E10.10 - Type 1 diabetes mellitus with ketoacidosis without coma Plan to address problem: AG closed on IV insulin, DM management as per primary attending (4) Hyperglycemia Current Visit: Yes Status: Acute Plan to address problem: on IV insulin (5) Hyperkalemia Current Visit: Yes Status: Acute Plan to address problem: secondary to transcellular shift and decreased distal tubular Na delivery in the setting of pre-renal azotemia. Improved with IV hydration and correction of hyperglycemia (6) Pancreatitis Current Visit: Yes Status: Acute Qualifiers: Acute pancreatitis complication: unspecified Plan to address problem: conservative management as per primary attending
[2021-07-09] MEDS: INSULIN REGULAR, HUMAN 100 UNITS/1 ML SUB-Q SCH ×2 (12:26→16:08)
[2021-07-09] MEDS: INSULIN LISPRO 100 UNIT/ML SUB-Q SCH ×2 (12:27→18:22)
[2021-07-09 16:38] LABS: BUN/Creatinine Ratio 40; Blood Urea Nitrogen 56 mg/dL (9-20); Calcium 8.7 mg/dL (8.4-10.2); Hemolysis Index 3
[2021-07-09 21:44] LABS: Creatinine,Urine 90.6 mg/dL (0.1-20.0)
[2021-07-09] MEDS ORDERED: INSULIN GLARGINE 100 UNITS/ML SUB-Q SCH (22:00)
[2021-07-10] MEDS: SODIUM CHLORIDE 0.9% 1000 ML 1,000 ML IV SCH ×2 (00:02→10:39)
[2021-07-10] MEDS: INSULIN LISPRO 100 UNIT/ML SUB-Q SCH ×5 (00:03→17:53)
[2021-07-10] MEDS: INSULIN REGULAR, HUMAN 100 UNITS/1 ML SUB-Q SCH ×4 (00:25→17:53)
[2021-07-10 06:06] LABS: BUN/Creatinine Ratio 33; Blood Urea Nitrogen 36 mg/dL (9-20); Calcium 8.8 mg/dL (8.4-10.2); Hemolysis Index 3
[2021-07-10] MEDS: amLODIPine 5 MG TAB PO SCH (10:40)
--- NOTE | 2021-07-10 13:52 | Progress Note ---
Assessment and Plan - Patient Problems (1) Acute kidney injury Current Visit: Yes Status: Acute Plan to address problem: JESSICA is likely secondary to pre-renal azotemia in the setting of severe hyperglycemia/DKA. Renal function improving promptly on IVF, improved glucose control and resolving DKA. Cr improved to 1.1mg/dl, UOP increasing. Check urine lytes, urine P/C ratio. Cont IVF with D5 1/2 NS + Kcl at 125ml/hr. Strict I/Os, avoid nephrotoxins, NSAIDs IV, contrast. Will monitor lytes, renal parameters closely and make further recommendations. (2) Hyponatremia Current Visit: Yes Status: Acute Plan to address problem: 2/2 hyperglycemia, improving with aggressive glucose control (3) DKA (diabetic ketoacidosis) Current Visit: Yes Status: Acute Qualifiers: Diabetes mellitus type: type 1 Diabetes mellitus complication detail: without coma Qualified Code(s): E10.10 - Type 1 diabetes mellitus with ketoacidosis without coma Plan to address problem: AG closed on IV insulin, DM management as per primary attending (4) Hyperglycemia Current Visit: Yes Status: Acute Plan to address problem: on IV insulin (5) Hyperkalemia Current Visit: Yes Status: Acute Plan to address problem: secondary to transcellular shift and decreased distal tubular Na delivery in the setting of pre-renal azotemia. Improved with IV hydration and correction of hyperglycemia. patient is now hypokalemic, receiving KCl (6) Pancreatitis Current Visit: Yes Status: Acute Qualifiers: Acute pancreatitis complication: unspecified Plan to address problem: conservative management as per primary attending Subjective Date of service: 07/10/21 Principal diagnosis: JESSICA Interval history: Patient awake, alert, in no acute distress Objective - Vital Signs Vital signs: Vital Signs - 12hr 07/10/21 07/10/21 07/10/21 06:21 08:00 08:22 Temperature 98.5 F 99.4 F Pulse Rate 88 86 Respiratory 18 18 Rate Blood Pressure 126/76 Blood Pressure 119/50 [Right] O2 Sat by Pulse 98 98 100 Oximetry 07/10/21 07/10/21 09:08 11:42 Temperature 99.2 F Pulse Rate 79 Respiratory 18 Rate Blood Pressure 124/70 Blood Pressure [Right] O2 Sat by Pulse 99 99 Oximetry - General Appearance General appearance: well-developed, well-nourished, appears stated age EENT: ATNC, PERRL, mucous membranes moist Neck: no JVD Respiratory: Present: Clear to Ascultation Cardiology: regular, S1S2 Gastrointestinal: normoactive bowel sounds Integumentary: no rash, other (no edema ) Neurologic: no focal deficit, alert and oriented x3, strength 5/5, CN 3-12 in tact Psychiatric: mood/affect appropriate, cooperative - Lab 07/09/21 04:40 07/10/21 04:11 Most recent lab results ABG pH 6.914 pH Units (7.350-7.450) L* 07/08/21 15:15 ABG pCO2 12.7 mm Hg 07/08/21 15:15 ABG pO2 157.4 mm Hg (80.0-90.0) H 07/08/21 15:15 ABG HCO3 2.5 mmol/L (20.0-26.0) L 07/08/21 15:15 ABG O2 Saturation 98.1 % (95.0-99.0) 07/08/21 15:15 Calcium 8.8 mg/dL (8.4-10.2) 07/10/21 04:11 Phosphorus 13.60 mg/dL (2.5-4.5) H 07/08/21 15:39 Magnesium 3.20 mg/dL (1.7-2.3) H 07/08/21 15:39 Urine Creatinine 90.6 mg/dL (0.1-20.0) H 07/09/21 21:19 Urine Sodium 20 mmol/L 07/09/21 21:19 Urine Total Protein 173 mg/dL (5-11.8) H 07/09/21 21:19 Medications & Allergies - Medications Allergies/Adverse Reactions: Allergies No Known Allergies Allergy (Unverified 04/13/15 04:55) Home Medications: Home Medications Medication Instructions Recorded Confirmed Last Taken Type Insulin Aspart (Nf) [NovoLOG 5 units SQ AC 04/13/15 04/13/15 04/12/15 History Flexpen] Insulin Detemir (Nf) [Levemir 10 units SQ QHS 04/13/15 04/13/15 04/12/15 History Flextouch] Lisinopril [Zestril TAB] 2.5 mg PO QDAY 04/13/15 04/13/15 04/12/15 History Active Medications: Generic Name Dose Route Start Last Admin Trade Name Freq PRN Reason Stop Dose Admin Acetaminophen 650 mg 07/08/21 16:15 Acetaminophen 325 Mg Tab PO Q6H PRN Pain MILD(1-3)/Fever >100.5/RYAN Albuterol 2.5 mg 07/08/21 16:15 Albuterol 2.5 Mg/3 Ml Nebu IH Q3HRT PRN Shortness Of Breath Amlodipine Besylate 5 mg 07/09/21 10:00 07/10/21 10:40 Amlodipine 5 Mg Tab PO 5 mg QDAY JERAD Administration Dextrose 50 ml 07/09/21 08:30 Dextrose 50% In Water (25gm) 50 Ml Syringe IV Q30MIN PRN Hypoglycemia Protocol Hydromorphone HCl 0.5 mg 07/08/21 16:15 07/08/21 21:24 Hydromorphone 1 Mg/1 Ml Inj IV 0.5 mg Q23H PRN Administration Pain , Severe (7-10) Hydromorphone HCl 0.25 mg 07/08/21 16:25 Hydromorphone 1 Mg/1 Ml Inj IV Q4H PRN Pain, Moderate (4-6) Sodium Chloride 1,000 mls @ 150 mls/hr 07/08/21 16:15 07/10/21 10:39 Nacl 0.9% 1000 Ml IV 150 mls/hr DIRECT JERAD Administration Levofloxacin/Dextrose 750 mg in 150 mls @ 100 mls/hr 07/08/21 17:00 07/09/21 23:24 Levaquin 750mg/150ml IV Infused Q24H JERAD Infusion Protocol Potassium Chloride/Dextrose/Sod Cl 20 meq in 1,000 mls @ 125 mls/hr 07/09/21 06:00 07/09/21 16:04 D5w/0.45% Nacl/Kcl 20 Meq IV Infused DIRECT JERAD Infusion Insulin Glargine 20 units 07/09/21 22:00 07/10/21 00:23 Insulin Glargine 100 Units/Ml SUB-Q 20 units QHS JERAD Administration Insulin Human Lispro 0 unit 07/09/21 12:00 07/10/21 07:10 Insulin Lispro 100 Unit/Ml SUB-Q 4 unit Q6HR JERAD Administration Protocol Insulin Human Regular 5 units 07/09/21 11:30 07/10/21 10:40 Insulin Regular, Human 100 Units/1 Ml SUB-Q 5 units ACHS JERAD Administration Oxycodone/Acetaminophen 1 tab 07/08/21 16:15 Oxycodone /Acetaminophen 5-325mg Tab PO Q16H PRN Pain, Moderate (4-6) Sodium Chloride 10 ml 07/08/21 22:00 07/10/21 00:03 Sodium Chloride 0.9% 10 Ml Flush Syringe IV 10 ml BID JERAD Administration Sodium Chloride 10 ml 07/08/21 16:15 Sodium Chloride 0.9% 10 Ml Flush Syringe IV PRN PRN LINE FLUSH
--- NOTE | 2021-07-10 15:21 | Progress Note ---
Subjective Date of service: 07/10/21 Principal diagnosis: JESSICA Objective - Constitutional Vitals: Vital Signs - 12hr 07/10/21 07/10/21 07/10/21 06:21 08:00 08:22 Temperature 98.5 F 99.4 F Pulse Rate 88 86 Respiratory 18 18 Rate Blood Pressure 126/76 Blood Pressure 119/50 [Right] O2 Sat by Pulse 98 98 100 Oximetry 07/10/21 07/10/21 09:08 11:42 Temperature 99.2 F Pulse Rate 79 Respiratory 18 Rate Blood Pressure 124/70 Blood Pressure [Right] O2 Sat by Pulse 99 99 Oximetry General appearance: Present: no acute distress, well-nourished - EENT Eyes: PERRL, EOM intact ENT: hearing intact, clear oral mucosa Ears: bilateral: normal - Neck Neck: supple, normal ROM - Respiratory Respiratory effort: normal Respiratory: bilateral: CTA - Breasts Breasts: normal - Cardiovascular Rhythm: regular Heart Sounds: Present: S1 & S2. Absent: gallop, rub Extremities: pulses intact, No edema, normal color, Full ROM - Gastrointestinal General gastrointestinal: Present: soft, non-tender, non-distended, normal bowel sounds - Genitourinary Male genitourinary: normal - Integumentary Integumentary: clear, warm, dry - Musculoskeletal Musculoskeletal: 1, strength equal bilaterally - Neurologic Neurologic: moves all extremities - Psychiatric Psychiatric: memory intact, appropriate mood/affect, intact judgment & insight - Labs CBC & Chem 7: 07/09/21 04:40 07/10/21 04:11 Labs: Abnormal lab results 07/09/21 07/09/21 07/09/21 Range/Units 15:55 15:57 18:19 Sodium (137-145) mmol/L Potassium (3.6-5.0) mmol/L BUN 56 H (9-20) mg/dL Creatinine 1.4 H (0.8-1.3) mg/dL Glucose 231 H (75-100) mg/dL POC Glucose 222 H 213 H (70-105) mg/dL Urine Creatinine (0.1-20.0) mg/dL Urine Total Protein (5-11.8) mg/dL 07/09/21 07/10/21 07/10/21 Range/Units 21:19 00:19 04:11 Sodium 135 L (137-145) mmol/L Potassium 3.5 L D (3.6-5.0) mmol/L BUN 36 H (9-20) mg/dL Creatinine (0.8-1.3) mg/dL Glucose 246 H (75-100) mg/dL POC Glucose 275 H (70-105) mg/dL Urine Creatinine 90.6 H (0.1-20.0) mg/dL Urine Total Protein 173 H (5-11.8) mg/dL 07/10/21 07/10/21 07/10/21 Range/Units 06:50 08:53 11:40 Sodium (137-145) mmol/L Potassium (3.6-5.0) mmol/L BUN (9-20) mg/dL Creatinine (0.8-1.3) mg/dL Glucose (75-100) mg/dL POC Glucose 285 H 189 H 293 H (70-105) mg/dL Urine Creatinine (0.1-20.0) mg/dL Urine Total Protein (5-11.8) mg/dL HEART Score - HEART Score Troponin: Troponin T < 0.010 ng/mL (0.00-0.029) 07/08/21 13:27
--- NOTE | 2021-07-10 16:01 | Discharge Summary ---
Providers - Providers Date of Admission: 07/08/21 16:15 Attending physician: BRADLEY JANG 07/08/21 16:21 Consult to Physician [CONS] Routine Comment: Consulting Provider: KRISS MCKEON Physician Instructions: Reason For Exam: jessica Primary care physician: [employer] Hospitalization Condition: Critical Hospital course: History of present illness: 45 YO Male with DM, Obesity, Nicotine Dependence presents to ED for evaluation. Patient reports "I have been feeling sick". Patient states that he has experienced nausea, and has not taken his insulin over the past 5 days. Patient denies any decreased oral intake. Patient also acknowledges progressive weakness. EMS was notified 3 days ago but patient refused transport to the [facility] for evaluation. Patient transported to [facility] via private vehicle for further care and evaluation of the aforementioned symptoms. The patient was seen and evaluated in the emergency department. All lab and imaging studies reviewed. Upon arrival the patient was found to be hypotensive with a systolic blood pressure in the 80s as well as clinical findings and lab findings consistent with sepsis. Patient also found to have DKA, acute kidney injury, volume depletion, acute pancreatitis, as well as hyperkalemia. The patient was admitted to the ICU and initiated on sepsis protocol, DKA protocol. Patient treated with IV antibiotic therapy and IV fluid resuscitation therapy with mild improvement in symptoms. Patient denies fever, chills, chest pain, palpitation, productive cough, skin rash, recent ill contacts, or known exposure to COVID- 19. No prior admission for review. All medication listed at time of admission has been reconciled. Advanced care planning conducted in ED. Hospital course: 07/09: IVF management for dka and pancreatitis. GAP closed now. initiated basal bolus insulin with SSI. Can downgrade to tele bed. Possible d/c in next 24-48 hrs. Assessment and Plan #Severe sepsis POA -We will discharge the patient on oral Levaquin #Diabetic ketoacidosis -DKA protocol: IV fluid cessation therapy, serial lactic acid level, serial BMP, monitor anion gap, insulin drip, monitor fluid balance. Potassium repletion as per protocol. Had extensive discussion with the patient about control of his blood glucose levels Patient has continuous glucose monitoring sensor in the form of lucy Patient to be discharged on Lantus 30 units in the morning and Humalog 6 units before each meal and to do sliding scale whenever the readings are high #Acute kidney injury due to vasomotor nephropathy Improved #Hypertension - d/c lisinopril due to renal insufficiency - start norvasc #Hyperkalemia - correction of dka as above. #Hyponatremia -correction of dka as above #Pancreatitis - IVF as above #Metabolic acidosis - bicarb < 2 on admission, likely d/t DKA - bicarb admin in ED. - improved. #Type 1 diabetes with hyperglycemia - hemoglobin a1c ordered #Obesity hypoventilation syndrome - balanced diet, inc physical activity at d//c #Nicotine dependence - Behavioral counseling administered + 15 min Disposition: HOME / SELF CARE / HOMELESS Final Discharge Diagnosis (Prints w/discharge instructions): Severe sepsis. 9 DKA. JESSICA. Hypertension. Hyperkalemia. Hyponatremia. Pancreatitis Time spent for discharge: 35 minutes - Discharge Diagnoses (1) DKA (diabetic ketoacidosis) Status: Acute Qualifiers: Diabetes mellitus type: type 1 Diabetes mellitus complication detail: without coma Qualified Code(s): E10.10 - Type 1 diabetes mellitus with ketoacidosis without coma (2) Acute kidney injury Status: Acute (3) Hyponatremia Status: Acute (4) Nicotine dependence Status: Acute Qualifiers: Nicotine product type: cigarettes Substance use status: in withdrawal Qualified Code(s): F17.213 - Nicotine dependence, cigarettes, with withdrawal (5) DVT prophylaxis Status: Acute (6) Pancreatitis Status: Acute Qualifiers: Acute pancreatitis complication: unspecified (7) Sepsis Status: Acute Core Measure Documentation - Palliative Care Palliative Care/ Comfort Measures: Not Applicable - Core Measures Any of the following diagnoses?: none Exam - Constitutional Vitals: Temp Pulse Resp BP Pulse Ox 99.2 F 79 18 124/70 99 07/10/21 11:42 07/10/21 11:42 07/10/21 11:42 07/10/21 11:42 07/10/21 11:42 General appearance: Present: no acute distress, well-nourished - EENT Eyes: Present: PERRL ENT: hearing intact, clear oral mucosa - Neck Neck: Present: supple, normal ROM - Respiratory Respiratory effort: normal Respiratory: bilateral: CTA - Cardiovascular Heart rate: 78 Rhythm: regular Heart Sounds: Present: S1 & S2. Absent: rub, click - Extremities Extremities: no ischemia, pulses intact, pulses symmetrical, No edema Peripheral Pulses: within normal limits - Abdominal General gastrointestinal: Present: soft, non-tender, non-distended, normal bowel sounds Male genitourinary: Present: normal - Rectal Rectal Exam: deferred - Integumentary Integumentary: Present: clear, warm, dry - Musculoskeletal Musculoskeletal: gait normal, strength equal bilaterally - Psychiatric Psychiatric: appropriate mood/affect, intact judgment & insight - Neurologic Neurologic: CNII-XII intact, moves all extremities - Allied Health Allied health notes reviewed: nursing, case management Plan Activity: no restrictions Diet: diabetic Follow up with: PRIMARY CARE, [Primary Care Provider] - 3-5 Days
[2021-07-10 18:47] VITALS: BP 119/64
== END 2021-07-10 18:20 | disposition home or self-care (01) | DRG 871 ==
LOC: ED 12:11 → CC1 16:15 → 4A 07-09 15:21
PROVIDERS: ADMIT Internal Medicine; ATTEND Internal Medicine
PROC: 4A033R1 Measurement of Arterial Saturation, Peripheral, Percutaneous Approach (ICD-10-PCS; principal; 2021-07-08)
DX: A41.9 Sepsis, unspecified organism (principal); E10.10 Type 1 diabetes mellitus with ketoacidosis without coma; G93.41 Metabolic encephalopathy; K85.90 Acute pancreatitis without necrosis or infection, unspecified; N17.0 Acute kidney failure with tubular necrosis; R65.20 Severe sepsis without septic shock; E66.2 Morbid (severe) obesity with alveolar hypoventilation; F17.200 Nicotine dependence, unspecified, uncomplicated; E87.5 Hyperkalemia; Z68.31 Body mass index [BMI] 31.0-31.9, adult; Z83.3 Family history of diabetes mellitus; Z82.49 Family history of ischemic heart disease and other diseases of the circulatory system; Z79.899 Other long term (current) drug therapy
CPT/HCPCS: 36415; 71045; 80048; 80053; 80307; 81001; 82010; 82140; 82570; 82803; 82962; 83036; 83690; 83735; 84100; 84145; 84156; 84300; 84484; 85007; 85025; 85610; 87040; 93005; G0378; J3480; J3490; Q0162; Q9967; J0610; J1170; J1815; J1956; J3370; J7030